=== PATIENT | male | born 1975 | race Caucasian/White ===

== ENCOUNTER 2017-03-23 19:44 | Emergency (ER) | payer OTHER ==
[~2017-03-23] VITALS: Ht 175.3 cm; Wt 109.1 kg
[~2017-03-23 19:44] MED LIST: ANTI-DEPRESSANT; BP MED; MOBIC 7.5MG7.5 MG PO; RITALIN 5MG5 MG/TAB PO; ULTRAM 50MG TAB50 MG PO; VITAMIN D1000 IU PO; WELLBUTRIN SR150 M1 PO; Z-BEC1 TAB PO; ZOCOR 20MG20 MG PO
[2017-03-23 20:15] VITALS: BP 138/87; TEMP 97.2
[2017-03-23 22:39] VITALS: PULSE 76
== END 2017-03-23 22:41 | disposition home or self-care (01) ==
LOC: COL.ER 19:44
DX: S61.012A Laceration without foreign body of left thumb without damage to nail, initial encounter (principal); W27.8XXA Contact with other nonpowered hand tool, initial encounter

== ENCOUNTER 2017-05-18 20:07 | Emergency (ER) | payer OTHER ==
[~2017-05-18] VITALS: Ht 175.3 cm; Wt 118.2 kg
[2017-05-18 20:10] VITALS: BP 137/85; TEMP 98
[2017-05-18] MEDS ORDERED: CONCERTA36 MG PO (20:26)
[2017-05-18] MEDS ORDERED: WELLBUTRIN SR150 M1 PO (20:27)
[2017-05-18] MEDS ORDERED: ZANTAC 150MG T150 MG PO (20:27)
[2017-05-18] MEDS ORDERED: ZOCOR 40MG40 MG PO (20:27)
[2017-05-18] MEDS ORDERED: ULTRAM 50MG TAB50 MG PO (20:28)
[2017-05-18] MEDS ORDERED: INDERAL 20MG20 MG PO (20:33)
[2017-05-18 21:24] VITALS: PULSE 62
== END 2017-05-18 21:25 | disposition home or self-care (01) ==
LOC: COL.ER 20:07
DX: S06.0X0A Concussion without loss of consciousness, initial encounter (principal); F41.9 Anxiety disorder, unspecified; W22.03XA Walked into furniture, initial encounter; Y92.009 Unspecified place in unspecified non-institutional (private) residence as the place of occurrence of the external cause

== ENCOUNTER 2018-01-23 13:06 | Emergency (ER) | payer OTHER ==
[~2018-01-23] VITALS: Ht 175.3 cm; Wt 125.0 kg
[~2018-01-23 13:06] MED LIST changes: +CONCERTA36 MG PO; +INDERAL 20MG20 MG PO; +ZANTAC 150MG T150 MG PO; +ZOCOR 40MG40 MG PO
[2018-01-23 13:55] LABS: BASO # 0.1 (0.0-0.2); BASO % 0.5 % (0.0-2.0); EOS # 0.2 (0.0-0.7); EOS % 2.4 % (0-4.0); GRAN # 6.5 (1.4-6.5); GRAN % 68.8 % (42.2-75.2); HEMATOCRIT 41.5 % (42.0-52.0); HEMOGLOBIN 14.3 g/dl (13.5-18.0); LYMPH # 1.9 (1.2-3.4); LYMPH % 19.8 % (20.0-51.0); MEAN CELL VOLUME 88 fl (80.0-100.0); MEAN CORPUSCULAR HEMOGLOBIN 30 pg (27.0-31.0); MEAN CORPUSCULAR HGB CONC 35 g/dl (33.0-37.0); MEAN PLATELET VOLUME 8.2 fl (7.4-10.4); MONO # 0.8 (0.1-0.6); MONO % 8.2 % (1.7-9.3); PLATELET COUNT 468 K/mm3 (130-400); REDCELL DISTRIBUTION WIDTH-CV 12.3 % (11.5-14.5)
[2018-01-23 13:58] LABS: INR 1.1 (0.8-3.0)
[2018-01-23 14:00] LABS: PARTIAL THROMBOPLASTIN TIME 29.9 SECONDS (26.0-37.0)
[2018-01-23 14:05] LABS: ALANINE AMINOTRANSFERASE 51 U/L (21-72); ALBUMIN 4.3 gm/dL (3.5-5.0); ALKALINE PHOSPHATASE 137 U/L (50-136); ANION GAP 12 mmol/L (7-16); AST,SGOT 39 U/L (15-37); BILIRUBIN,TOTAL 0.6 mg/dL (0.0-1.0); BLOOD UREA NITROGEN 11 mg/dL (9-20); CALCIUM 8.9 mg/dL (8.4-10.2); CARBON DIOXIDE 24 mmol/L (22-30); CHLORIDE 104 mmol/L (98-107); GLUCOSE 96 mg/dL (74-106); POTASSIUM 4.2 mmol/L (3.4-5.0); SODIUM 141 mmol/L (137-145); TOTAL PROTEIN 7.6 gm/dL (6.4-8.2)
[2018-01-23 14:16] LABS: TROPONIN-I < 0.012 ng/mL (0.000-0.034)
[2018-01-23 16:50] VITALS: BP 124/81; PULSE 65; TEMP 98.2
== END 2018-01-23 16:50 | disposition home or self-care (01) ==
LOC: COL.ER 13:06
PROVIDERS: Family Medicine
DX: R07.89 Other chest pain (principal); I10 Essential (primary) hypertension; E78.5 Hyperlipidemia, unspecified
CPT/HCPCS: J1885; J7030

== ENCOUNTER 2021-06-26 06:31 | Emergency (ER) | payer OTHER ==
[~2021-06-26] VITALS: Ht 175.3 cm; Wt 136.4 kg
[2021-06-26 07:42] VITALS: BP 174/104
[2021-06-26 08:29] LABS: BASO # 0.1 (0.0-0.2); BASO % 0.6 % (0.0-2.0); EOS # 0.3 (0.0-0.7); EOS % 3.8 % (0-4.0); GRAN # 5.2 (1.4-6.5); HEMATOCRIT 43.1 % (42.0-52.0); HEMOGLOBIN 14.3 g/dl (13.5-18.0); LYMPH % 23.8 % (20.0-51.0); MEAN CELL VOLUME 88 fl (80.0-100.0); MEAN CORPUSCULAR HEMOGLOBIN 29 pg (27.0-31.0); MEAN CORPUSCULAR HGB CONC 33 g/dl (33.0-37.0); MEAN PLATELET VOLUME 8.2 fl (7.4-10.4); MONO # 0.7 (0.1-0.6); MONO % 8.6 % (1.7-9.3); PLATELET COUNT 417 K/mm3 (130-400); REDCELL DISTRIBUTION WIDTH-CV 12.2 % (11.5-14.5)
[2021-06-26 08:42] LABS: ALANINE AMINOTRANSFERASE 40 U/L (4-49); ALBUMIN 4.5 gm/dL (3.5-5.0); ALKALINE PHOSPHATASE 120 U/L (50-136); ANION GAP 10 mmol/L (7-16); AST,SGOT 44 U/L (15-37); BILIRUBIN,TOTAL 0.4 mg/dL (0.0-1.0); BLOOD UREA NITROGEN 17 mg/dL (9-20); CALCIUM 9.3 mg/dL (8.4-10.2); CARBON DIOXIDE 24 mmol/L (22-30); CHLORIDE 105 mmol/L (98-107); CREATININE, serum 0.91 (0.66-1.25); GLUCOSE 140 mg/dL (74-106); POTASSIUM 4.4 mmol/L (3.4-5.0); SODIUM 139 mmol/L (137-145); TOTAL PROTEIN 7.5 gm/dL (6.4-8.2)
[2021-06-26 08:44] LABS: COLLECTION METHOD CLEAN CATCH
[2021-06-26 08:50] LABS: ACETAMINOPHEN < 10 ug/mL (10-30); ALCOHOL(ethanol),MEDICAL < 10 mg/dL; SALICYLATE < 1.0 mg/dL
[2021-06-26 09:03] LABS: MUCOUS Present /lpf; PH 5 (5-8); URINE APPEARANCE Clear; URINE BACTERIA None Seen /hpf; URINE BILIRUBIN Negative (NEGATIVE); URINE BLOOD Negative (NEGATIVE); URINE COLOR Yellow; URINE GLUCOSE Negative (NEGATIVE); URINE KETONE Negative (NEGATIVE); URINE LEUKOCYTE ESTERASE Negative (NEGATIVE); URINE NITRATE Negative (NEGATIVE); URINE PROTEIN(semi-quant) Negative (NEGATIVE); URINE RBC 0-2 /hpf; URINE UROBILINOGEN Negative (NEGATIVE)
[2021-06-26 09:04] LABS: TRICYCLIC ANTIDEPRESS URINE NEGATIVE
[2021-06-26 09:32] LABS: TSH w REFLEX 1.834 uIU/mL (0.350-4.940)
[2021-06-26 15:09] VITALS: PULSE 68
== END 2021-06-26 15:09 | disposition home or self-care (01) ==
LOC: COL.ER 06:31
PROVIDERS: Family Medicine
DX: F32.9 Major depressive disorder, single episode, unspecified (principal); I10 Essential (primary) hypertension; E78.5 Hyperlipidemia, unspecified; K21.9 Gastro-esophageal reflux disease without esophagitis; Z79.899 Other long term (current) drug therapy

== ENCOUNTER 2021-11-20 16:25 | Emergency (ER) | payer OTHER ==
[~2021-11-20] VITALS: Ht 175.3 cm; Wt 136.4 kg
[2021-11-20 17:35] LABS: BASO % 0.4 % (0.0-2.0); EOS # 0.4 K/mm3 (0.0-0.7); GRAN # 5.9 K/mm3 (1.4-6.5); GRAN % 61.3 % (42.2-75.2); HEMATOCRIT 41.5 % (42.0-52.0); LYMPH # 2.7 K/mm3 (1.2-3.4); LYMPH % 27.7 % (20.0-51.0); MEAN CELL VOLUME 85 fl (80.0-100.0); MEAN CORPUSCULAR HEMOGLOBIN 29 pg (27-31); MEAN CORPUSCULAR HGB CONC 34 g/dl (33.0-37.0); MEAN PLATELET VOLUME 8.1 fl (7.4-10.4); MONO # 0.6 K/mm3 (0.1-0.6); MONO % 6.2 % (1.7-9.3); PLATELET COUNT 514 K/mm3 (130-400); RED BLOOD COUNT 4.87 M/mm3 (4.20-5.60); REDCELL DISTRIBUTION WIDTH-CV 12.4 % (11.5-14.5)
[2021-11-20 17:56] LABS: ALANINE AMINOTRANSFERASE 38 U/L (0-55); ALKALINE PHOSPHATASE 119 U/L (40-150); ANION GAP 11 mmol/L (7-16); AST,SGOT 35 U/L (5-34); BILIRUBIN,TOTAL 0.5 mg/dL (0.2-1.2); BLOOD UREA NITROGEN 15 mg/dL (9-21); CARBON DIOXIDE 20 mmol/L (22-29); CHLORIDE 107 mmol/L (98-107); GLUCOSE 166 mg/dL (70-99); POTASSIUM 3.9 mmol/L (3.5-4.5); SODIUM 138 mmol/L (136-145)
[2021-11-20 18:04] LABS: TROPONIN-I < 0.010 ng/mL (0.00-0.033)
[2021-11-20 19:55] VITALS: BP 133/86; PULSE 84; TEMP 98.7
== END 2021-11-20 19:55 | disposition home or self-care (01) ==
LOC: COL.ER 16:25
PROVIDERS: Nurse Practitioner Primary Care
DX: U07.1 COVID-19 (principal); I10 Essential (primary) hypertension; E11.9 Type 2 diabetes mellitus without complications; F32.A Depression, unspecified; E78.5 Hyperlipidemia, unspecified; E78.00 Pure hypercholesterolemia, unspecified; Z87.891 Personal history of nicotine dependence; Z79.899 Other long term (current) drug therapy

== ENCOUNTER 2022-08-30 20:12 | Emergency (ER) | payer OTHER ==
[~2022-08-30] VITALS: Ht 175.3 cm; Wt 130.0 kg
[2022-08-30 20:19] VITALS: TEMP 98.5
[2022-08-30 21:34] LABS: BASO % 0.4 % (0.0-2.0); EOS # 0.3 K/mm3 (0.0-0.7); EOS % 2.7 % (0.0-4.0); GRAN # 6.3 K/mm3 (1.4-6.5); GRAN % 67.8 % (42.2-75.2); HEMOGLOBIN 13.1 g/dl (13.5-18.0); LYMPH % 21.6 % (20.0-51.0); MEAN CELL VOLUME 84 fl (80.0-100.0); MEAN CORPUSCULAR HEMOGLOBIN 28 pg (27-31); MEAN CORPUSCULAR HGB CONC 34 g/dl (33.0-37.0); MEAN PLATELET VOLUME 8.2 fl (7.4-10.4); MONO # 0.7 K/mm3 (0.1-0.6); MONO % 7.1 % (1.7-9.3); PLATELET COUNT 467 K/mm3 (130-400); RED BLOOD COUNT 4.64 M/mm3 (4.20-5.60); REDCELL DISTRIBUTION WIDTH-CV 13.4 % (11.5-14.5)
[2022-08-30 21:44] LABS: ALBUMIN 4.1 gm/dL (3.5-5.0); BILIRUBIN,TOTAL 0.5 mg/dL (0.2-1.2); CALCIUM 8.8 mg/dL (8.4-10.2); CREATININE, serum 1.05 mg/dL (0.72-1.25); POTASSIUM 4.1 mmol/L (3.5-4.5)
[2022-08-30 22:47] VITALS: BP 159/94; PULSE 71
== END 2022-08-30 22:47 | disposition home or self-care (01) ==
LOC: COL.ER 20:12
PROVIDERS: Nurse Practitioner Family
DX: D64.9 Anemia, unspecified (principal); M62.838 Other muscle spasm; R11.0 Nausea
CPT/HCPCS: J1200; J1885; J2405; J7030